=== PATIENT | female | born 1970 | race Caucasian/White ===

== ENCOUNTER → 2021-05-06 15:31 | Outpatient (CLI) | payer BC, SELFPAY ==
[2021-05-06 17:02] LABS: Alanine Aminotransferase 29 U/L (12-78); Albumin Level 3.5 g/dl (3.5-5.0); Albumin/Globulin Ratio 1.1 (1.1-1.8); Alkaline Phosphatase 81 U/L (38-126); Anion Gap 13.4 mEq/L (5-15); Aspartate Amino Transferase 21 U/L (14-36); Blood Urea Nitrogen 14 mg/dl (7-17); Calcium 9.2 mg/dl (8.4-10.2); Carbon Dioxide 30 mmol/L (22.0-30.0); Chloride 101 mmol/L (98-107); Estimated Glomerular Filt Rate 105 ml/min (>60); GFR (African American) 128 ML/MIN (>60); Globulin 3.1 g/dL (1.3-3.2); Glucose 90 mg/dl (74-100); Potassium 4.4 mmoL/L (3.5-5.1); Sodium 140 mmol/L (136-145); Total Protein,Serum 6.6 g/dl (6.3-8.2)
[2021-05-06 17:19] LABS: 25-OH Vitamin D, Total 71.3 ng/mL (30-100)
[2021-05-06 17:32] LABS: Thyroid Stimulating Hormone 0.85 uIU/mL (0.465-4.68)
[2021-05-06 17:50] LABS: Vitamin B12 904 pg/mL (239-931)
== END ==
PROVIDERS: Visit Provider Family Medicine
DX: Z00.00 Encounter for general adult medical examination without abnormal findings (principal); E66.9 Obesity, unspecified; Z68.34 Body mass index [BMI] 34.0-34.9, adult
CPT/HCPCS: 80053; 82306; 82607; 84443

== ENCOUNTER → 2021-07-25 10:59 | Outpatient (CLI) | payer BC, SELFPAY ==
--- NOTE | 2021-07-25 11:02 | CA_ITS ---
APPROVED REPORT EXAM: Comprehensive 2D, Doppler, and color-flow Echocardiogram Senior Risk Manager: Sasha Benito, RCS, RVS Ht: 5 ft 5 in Wt: 202lbs BSA: 1.99 BP: 132/70 mmHg Indications: Murmur, Hx-COVID, HTN, S/p bariatric weight loss surgery X 2years 2D Dimensions IVSd 0.97 cm LA Volume 50.10 mL PWd 1.02 cm LA Volume Index 25.20 mL/m2 (M/F) 16-34 LVDd 5.12 cm LVOT 1.70 cm (M/F) 1.5-2.5 M-Mode Dimensions RVDd 2.78 cm (0.9-2.6) LA Diam 3.50 cm (1.9-4.0) LVDd 4.76 cm (3.5-5.7) Ao Diam 2.50 cm (2.0-3.7) LVDs 2.92 cm (3.5-5.7) IVSd 1.01 cm (0.6-1.1) PWd 0.67 cm (0.6-1.1) EF (Teich) 68.90% EPSs 0.30 cm FS 38.70% EDV (Teich) 105.40 mL TAPSE 2.77 (<1.7) ESV (Teich) 32.80 mL LV Diastology E Decel Time 227.00 (160-240 msec) E/A Ratio 1.35 MED E' 11.60 (< 7 cm/sec) MED A' 9.90 cm/s E'/MED E' Ratio 7.97 (>14) LAT E' 10.50 (<10 cm/sec) LAT A' 9.40 cm/s E/LAT E' Ratio 8.81 (>14) Aortic Valve AoV Peak Jn. 194.00 (50-130 cm/s) AO Peak GR. 15.10 mmHg AO Mean GR. 7.50 (<5 mmHg) AO VTI 42.08 (18-25 cm) Mitral Valve MV A Velocity 68.00 (40-130 cm/s) E/A Ratio 1.35 MV Decel. Time 227.00 (160-240 ms) Pulmonary Valve PV Peak Velocity 119.00 (50-150 cm/s) Tricuspid Valve TR P. Velocity 256.00 cm/s RAP Estimate 10.00 mmHg RVSP 36.30 mmHg Left Ventricle Left atrium is mildly enlarged, left ventricle is normal size, preserved left ventricular systolic function, visually estimated ejection fraction 55% with no regional wall motion abnormality, diastolic parameters are inconclusive. Right Ventricle Right atrium and right ventricle are mildly enlarged with normal contractility. Aortic Valve Aortic valve is minimally thickened and fibrosed, there is no aortic stenosis or aortic insufficiency. Mitral Valve Mitral valve grossly normal, there is trace mitral regurgitation. Tricuspid Valve Tricuspid grossly normal, there is trace tricuspid regurgitation, tricuspid regurgitation jet velocity is inadequate for calculation of the right ventricular systolic pressure. Pulmonic Valve Pulmonic valve is poorly visualized. Great Vessels Aortic root is normal size. Pericardium No significant pericardial effusion noted. Conclusion 1. Mild biatrial enlargement, normal left ventricular size, visually estimated ejection fraction 55% with no regional wall motion abnormality. Diastolic parameters are inconclusive. 2. Mildly enlarged right ventricle with normal contractility. 3. Trace mitral and tricuspid regurgitation. 4. No significant pericardial effusion noted. 5. Inferior vena cava is poorly visualized. Electronically signed by : Jonathan García MD 07/25/2021 16:08:11
== END ==
PROVIDERS: PCP Family Medicine; Visit Provider Family Medicine
DX: R01.1 Cardiac murmur, unspecified (principal)
CPT/HCPCS: 93306

== ENCOUNTER → 2021-07-29 12:51 | Outpatient (CLI) | payer BC, SELFPAY ==
[2021-07-29 13:44] LABS: Alanine Aminotransferase 17 U/L (12-78); Albumin Level 4.1 g/dl (3.5-5.0); Alkaline Phosphatase 65 U/L (38-126); Aspartate Amino Transferase 24 U/L (14-36); Bilirubin,Direct 0.1 mg/dl (0.0-0.4); Bilirubin,Indirect 0.9 mg/dL (0.0-0.9); Chol/HDL Ratio 3.4 (1-3.5); Cholesterol 236 mg/dl (140-200); HDL Cholesterol 70 mg/dl (40-60); Total Protein,Serum 6.7 g/dl (6.3-8.2); Triglycerides 98 mg/dl (30-150); VLDL Cholesterol 20 mg/dL (0-40)
[2021-07-29 13:55] LABS: Direct LDL Cholesterol 144.07 mg/dL (100-129)
== END ==
PROVIDERS: PCP Family Medicine; Visit Provider Internal Medicine
DX: R00.0 Tachycardia, unspecified (principal); R01.1 Cardiac murmur, unspecified; R06.83 Snoring; R40.0 Somnolence; R42 Dizziness and giddiness; R53.83 Other fatigue
CPT/HCPCS: 36415; 80061; 80076; 93225

== ENCOUNTER → 2021-08-05 06:43 | Outpatient (CLI) | payer BC, SELFPAY ==
--- NOTE | 2021-08-05 06:44 | CA_ITS ---
APPROVED REPORT Exam: Exercise Treadmill Technologist: Matilda Mejia, Ht: 5 ft 7 in Wt: 199 lbs BSA: 2.02 m2 HR: 68 bpm BP: 128/77 mmHg Medical History Medications: Levothyroxine,,,,, Propranolol,,,,, Vitamin B12,,,,, Stress Test Details Test: López HR Resting HR: 85 bpm Max Heart Rate (APMHR): 168 bpm Max HR Achieved: 170 bpm Target HR (85% APMHR): 143 bpm % of APMHR: 101 Recovery HR: 104 bpm BP Resting BP: 121/70 mmHg Max BP: 172/74 mmHg Recovery BP: 143.0/74.0 mmHg ECG Resting ECG: NSR, IVCD Low Voltage II, V3 Clinical Reason for Termination: Dyspnea Exercise duration: 08:00 min Highest Stage Achieved: Exercise capacity: 10.1 METs Stress ECG Conclusion Max HR: 170 % of PM: 118 METs: 10.1 Test stopped due to: SOB Symptoms: None Arrhythmias/Ectopy: None ST-T Changes: Baseline EKG- NSR, IVCD/RBBB with STT abn. Conclusion: Non-Diagnostic due to baseline EKG changes. Test Summary REST . . . . . . . Standing REST 04:51 0.0 1.2 85 . 121/ 70 . . Stage 1 01:00 10.0 1.7 102 . . . . Stage 1 02:00 10.0 1.7 111 . . . . Stage 1 03:00 10.0 1.7 126 . 130/ 80 . . Stage 2 01:00 12.0 2.5 140 . . . . Stage 2 02:00 12.0 2.5 142 . . . . Stage 2 03:00 12.0 2.5 147 . 142/ 88 . . Stage 3 01:00 14.0 3.4 165 . . . . Stage 3 02:00 14.0 3.4 168 . . . Stop exercise at 08:00 RECOVERY 01:00 0.0 0.0 142 . . . . RECOVERY 02:00 0.0 0.0 113 . . . . RECOVERY 03:00 0.0 0.0 103 . 172/ 74 . . RECOVERY 04:00 0.0 0.0 104 . 172/ 74 . . RECOVERY 05:00 0.0 0.0 96 . 143/ 74 . . RECOVERY 05:50 0.0 0.0 95 . 143/ 74 . . Electronically signed by : Jonathan García MD 08/05/2021 12:47:00
--- NOTE | 2021-08-05 06:44 | NM_ITS ---
APPROVED REPORT Exam: Nuclear Stress Test Indication: heart murmur Patient Location: Outpatient Stress Tech: Matilda Mejia [place] Tech:CHRIS Conteh RT(R)(N) Ht: 5 ft 6 in Wt: 195 lbs Bra Size: 40c HR: 68 bpm BP: 128/77 mmHg BSA: 1.98 m2 BMI: 31.4 Procedure: Patient exercised on López protocol 8 minutes and sec, resting heart rate 68 bpm, resting blood pressure 128/77 mmHg, with exercise maximum heart rate achived was 149 bpm which is 118 % of the maximum predicted heart rate and blood pressure was 142/88 mmHg. Patient denied any complaint of chest pain. Patient has good exercise capacity, achieved 10.1 METs of workload on treadmill, the blood pressure response to exercise was Adequate. Electrocardiogram Resting electrocardiogram showed sinus rhythm intraventricular conduction delay nonspecific ST-T changes, with exercise there is additional millimeter ST segment depression noted from the baseline EKG. The EKG portion of the exercise Myoview is nondiagnostic due to baseline abnormal EKG. Cardiac Stress and Resting SPECT Images: Cardiac Stress and Resting SPECT images were obtained using technetium 99m Myoview 29.7 mCi stress and 10.40 mCi at rest. Gated SPECT for analysis for analysis of segmental wall motion and calculation of the ejection fraction also done. Prone images were also obtained. Cardiac stress and rest SPECT images show mild fixed defect in the anteroseptal area which is likely secondary to intraventricular conduction delay, no reversible ischemia seen, computer derived ejection fraction is 58% with no regional wall motion abnormality, right ventricle is normal size and contractility. Conclusion: 1. The EKG portion of the exercise Myoview is nondiagnostic due to baseline abnormal EKG, patient has good exercise capacity achieved 10.1 METs of workload on treadmill, the blood pressure response to exercise was adequate, there was no exercise-induced chest discomfort. 2. No scintigraphic evidence of reversible ischemia seen at this level of exercise, a fixed defect in the anteroseptal area is likely secondary to intraventricular conduction delay, computer derived ejection fraction is 58% with no regional wall motion abnormality, right ventricle is normal size and contractility. 3. Likely normal exercise Myoview study. Electronically signed by : Jonathan García MD 08/05/2021 17:26:32
== END ==
PROVIDERS: PCP Family Medicine; Visit Provider Urology
DX: R01.1 Cardiac murmur, unspecified (principal); R94.31 Abnormal electrocardiogram [ECG] [EKG]; Z82.49 Family history of ischemic heart disease and other diseases of the circulatory system
CPT/HCPCS: 78452; 93017; A9502

== ENCOUNTER → 2021-08-05 11:19 | Outpatient (CLI) | payer BC, SELFPAY | PROVIDERS: PCP Family Medicine; Visit Provider Nurse Practitioner Family | DX: R00.2 Palpitations (principal); R42 Dizziness and giddiness; G47.30 Sleep apnea, unspecified; R06.83 Snoring; R40.0 Somnolence; R53.83 Other fatigue; R94.31 Abnormal electrocardiogram [ECG] [EKG]; R01.1 Cardiac murmur, unspecified; R00.0 Tachycardia, unspecified; I44.7 Left bundle-branch block, unspecified; E78.5 Hyperlipidemia, unspecified | CPT/HCPCS: 93270; G0399 ==

== ENCOUNTER → 2021-09-16 09:29 | Outpatient (CLI) | payer BC, SELFPAY ==
[2021-09-16 11:04] LABS: Alanine Aminotransferase 17 U/L (12-78); Albumin Level 3.9 g/dl (3.5-5.0); Alkaline Phosphatase 73 U/L (38-126); Aspartate Amino Transferase 26 U/L (14-36); Bilirubin,Direct 0.2 mg/dl (0.0-0.4); Bilirubin,Indirect 0.4 mg/dL (0.0-0.9); Bilirubin,Total 0.6 mg/dl (0.2-1.3); Bilirubin,Unconjugated 0.4 mg/dL (0.0-1.1); Chol/HDL Ratio 2.4 (1-3.5); Cholesterol 156 mg/dl (140-200); HDL Cholesterol 65 mg/dl (40-60); Total Protein,Serum 6.2 g/dl (6.3-8.2); Triglycerides 54 mg/dl (30-150); VLDL Cholesterol 11 mg/dL (0-40)
[2021-09-16 11:15] LABS: Direct LDL Cholesterol 69.16 mg/dL (100-129)
== END ==
PROVIDERS: Nurse Practitioner Family; Visit Provider Specialist
DX: E83.10 Disorder of iron metabolism, unspecified (principal); E78.5 Hyperlipidemia, unspecified; I44.7 Left bundle-branch block, unspecified; R00.0 Tachycardia, unspecified; R00.2 Palpitations; R01.1 Cardiac murmur, unspecified; R06.83 Snoring; R40.0 Somnolence; R42 Dizziness and giddiness; R53.83 Other fatigue; R94.31 Abnormal electrocardiogram [ECG] [EKG]
CPT/HCPCS: 36415; 80061; 80076; 82728